=== PATIENT | female | born 1950 | race Caucasian/White ===

== ENCOUNTER 2017-04-20 15:21 | Observation (INO) | payer MEDICARE, OTHER ==
[2017-04-20] MEDS ORDERED: Sodium Chloride 0.9% 1000 ML 1,000 ML IV SCH (17:30)
[2017-04-20] MEDS: SUBLIMAZE 100 MCG/2 ML IV PRN (17:44)
[2017-04-20] MEDS ORDERED: Robitussin AC Syrup Unit Dose Cup PO PRN (17:51)
[2017-04-20 18:06] LABS: BASOPHIL % 0.3 % (0.0-0.4); Eosinophil % 1.2 % (0.00-5.0); Lymphocytes % 22.1 % (24.0-44.0); Mean Cell Volume 93.9 fl (78-100); Mean Corpuscular Hemoglobin 30.5 pg (26-32); Mean Platelet Volume 10.9 fl (6-9.5); Monocytes % 6.4 % (0.0-12.0); Platelet Count 180 K/mm3 (150-450); Red Blood Count 3.77 M/mm3 (4.1-5.4); Red Cell Distribution Width 12.9 % (11.5-14.0); White Blood Count 6.6 K/mm3 (4.0-10.5)
[2017-04-20 18:29] LABS: ALBUMIN 3.7 g/dL (3.4-5.0); ANION GAP 12.6 MEQ/L (5-15); BILIRUBIN,TOTAL 0.2 mg/dL (0.2-1.0); Carbon Dioxide 26.1 mEq/L (21-32); Potassium 3.4 mEq/L (3.5-5.1); Total Protein 7.1 gm/dL (6.4-8.2)
[2017-04-20] MEDS: ceLEXa 20 MG PO ONE ×2 (18:56→22:13)
[2017-04-20] MEDS: Lyrica 50MG PO ONE ×2 (18:59→22:13)
[2017-04-20] MEDS ORDERED: XARELTO 10 MG TABLET ONE (20:38)
[2017-04-20] MEDS ORDERED: ZOCOR 20MG PO SCH (22:00)
[2017-04-20] MEDS ORDERED: Pepcid 20 MG PO SCH (22:00)
[2017-04-20] MEDS: Naprosyn 500 MG PO SCH (22:11)
[2017-04-20] MEDS: Zanaflex 4 MG PO SCH (22:12)
[2017-04-21] MEDS: SUBLIMAZE 100 MCG/2 ML IV PRN (06:16)
[2017-04-21] MEDS ORDERED: Xopenex 1.25 MG/0.5 ML UD NEBULE IH SCH (07:00)
[2017-04-21] MEDS ORDERED: Sodium Chloride 3 ML UD NEBULES IH SCH (07:00)
[2017-04-21] MEDS ORDERED: PHENERGAN 25 MG PO PRN (07:29)
--- NOTE | 2017-04-21 09:05 | XRAY ---
Exam: Five-view lumbar spine series from 04/20/2017. Comparison: Sagittal images from a CT of the abdomen and pelvis without IV contrast from 02/23/2016 Indication: No known injury, low back pain and pain in coccyx area, history of fibromyalgia, no history of prior lumbar surgery. Findings: AP, lateral, both oblique images, and a coned-down lateral film of the lumbosacral junction were obtained. There are 5 [id number] lumbar-type vertebra. There is some straightening of the lumbar spine on the lateral radiograph. This is nonspecific. Consider spasm. I see no acute fracture, spondylolisthesis, or spondylolysis. Prominent anterior flowing osteophytes are seen within within the mid lumbar spine, most prominent at L2-L3 and L3-L4, although L4-L5 is involved as well to a lesser extent. I believe there is slight narrowing of the L5-S1 interspace. Moderate to marked facet joint arthropathy is seen at L4-L5 and L5-S1 bilaterally. No focal bone destruction is seen. There is a 3 mm calcification within the lower right pelvis which is shown to represent a phlebolith on axial image #[address] scan of 02/23/2016. The sacroiliac joints appear unremarkable. Impression: 1. I see no acute lumbar spine fracture, spondylolisthesis, or spondylolysis. 2. Nonspecific straightening of the lumbar spine on the lateral radiograph. Consider spasm. 3. Degenerative changes are seen within the lumbar spine, as discussed above.
--- NOTE | 2017-04-21 09:09 | XRAY ---
Exam: 3 view sacrum/coccyx films from 04/20/2017. Comparison: None. Indication: No known injury, low back pain with pain particularly in coccyx area, history of fibromyalgia, no history of prior surgery. Findings: AP, AP angled, and lateral radiographs of the sacrum and coccyx were obtained. I see no evidence of fracture or bone destruction within the sacrum or coccyx. The bones appear demineralized. Degenerative changes are again seen within the lower lumbar spine. No significant abnormality of the sacroiliac joints is seen. Impression: 1. No acute fracture or bone destruction is seen within the sacrum or coccyx.
[2017-04-21] MEDS ORDERED: Lyrica 50MG PO SCH (10:00)
[2017-04-21] MEDS ORDERED: XARELTO 10 MG TABLET PO SCH (10:00)
[2017-04-21] MEDS ORDERED: CALCIUM CARBONATE PO SCH (10:00)
[2017-04-21] MEDS ORDERED: VITAMIN D3 PO SCH (10:00)
[2017-04-21] MEDS ORDERED: ceLEXa 20 MG PO SCH (10:00)
[2017-04-21] MEDS ORDERED: MULTIVITAMINS THERAPEUTIC PO SCH (10:00)
[2017-04-21] MEDS ORDERED: [UNRECOGNIZED DRUG - OTHER] PO SCH (10:00)
[2017-04-21] MEDS ORDERED: Toprol-Xl 25MG Tablets PO SCH (10:00)
[2017-04-21] MEDS ORDERED: THERAGRAN MULTIVITAMIN PO SCH (10:00)
[2017-04-21] MEDS ORDERED: Calcium 500MG W/Vit D Tablet PO SCH (10:00)
[2017-04-21] MEDS: Naprosyn 500 MG PO SCH (10:28)
[2017-04-21] MEDS: Zanaflex 4 MG PO SCH (10:28)
[2017-04-21 11:21] VITALS: BP 146/66; PULSE 58; O2SAT 97
--- NOTE | 2017-04-21 13:05 | XRAY ---
Exam: CT of the lumbar spine without IV contrast from 04/21/2017. CTDI: 43.53 Comparison: Five-view lumbar spine series 04/20/2017. Indication: Acute back pain for 3 weeks, no prior surgical history within the lower lumbar spine, history of fibromyalgia. Technique: Non-IV contrast axial images were obtained through the lumbosacral spine. Reconstructed coronal and sagittal images were created and reviewed. In addition, thin section angled axial images were obtained parallel to the interspaces from T12-L1 through L5-S1. Findings: I again note straightening of the lumbar spine on the sagittal images. This is nonspecific, but paravertebral muscular spasm should be considered. Large anterior osteophytes are seen at L2-L3 and L3-L4 and a moderate size anterior osteophyte is seen at L4-L5. There is also small anterior vertebral endplate spurs at L5-S1. I see no acute lumbar spine fracture, spondylolisthesis, or spondylolysis. There is at least marked facet joint osteoarthritis at L4-L5 and L5-S1 bilaterally. 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 Minimal spurs are also seen at the lower anterior margin of each sacroiliac joint. No other sacroiliac joint abnormality is seen. The images of the sacrum and coccyx reveal no fracture or bone destructive process. At T12-L1, the disc and thecal sac appear unremarkable. No disc herniation or central canal stenosis is seen. The neural foramen are patent. There is mild degenerative changes of both facet joints. At L1-L2, there is slight diffuse annular bulging the disc without evidence of focal disc herniation or central canal stenosis. The ligamentum flavum appear unremarkable. The neural foramen are patent bilaterally. I note mild osteoarthritic changes of the facet joints. Small anterior vertebral endplate spurs are seen. At L2-L3, there is slight diffuse annular bulging of the disc without evidence of focal disc herniation or significant central canal stenosis. The AP dimension of the thecal sac measures about 11.2 mm on sagittal image #36 from series #201. The neural foramen are patent bilaterally. I again see mild facet joint arthropathy bilaterally. Prominent left anterior lateral vertebral endplate spurring is seen. At L3-L4, there is mild diffuse annular bulging of the disc which mildly effaces the anterior margin of the thecal sac, but again, no focal disc herniation is seen. The AP dimension of the thecal sac in the midline measures 9.1 mm on sagittal image #36 of series #201. This is slightly decreased. The width of the thecal sac appears unremarkable. The neural foramen are open. Moderate bilateral facet joint arthropathy is seen. Prominent anterior vertebral endplate spurring is seen. At L4-L5, I again note mild diffuse annular bulging of the disc. I believe there is a far lateral focal disc herniation on the left on axial images #70 through #73 of series #3. I believe this can also be seen on angled axial images #8 through #11. There is mild hypertrophy of ligamentum flavum and marked facet joint arthropathy bilaterally. The combination of these findings appears to be causing a mild to moderate circumferential central canal stenosis at L4-L5. AP dimension of the thecal sac in the midline measures about 9.8 mm. There is some narrowing of the neural foramen bilaterally at the disc level, left greater than right. The neural foramen above the disc level appear open. At L5-S1, there is mild diffuse annular bulging of the disc with mild lateral osteophyte formation on each side of midline. No focal disc herniation or significant central canal spinal stenosis is seen. AP dimension of the thecal sac measures 11.0 cm on sagittal image #36 of series #201. There is marked bilateral facet joint arthropathy. The S1 nerve roots appear unremarkable bilaterally. At the disc level, there is moderate compromise of the neural foramen bilaterally. Above the disc level, there is mild to moderate compromise of the neural foramen on the left and the upper right neural foramen remains open. Impression: 1. No acute lumbar spine fracture, spondylolisthesis, or spondylolysis is seen. There is some straightening of the lumbar spine on the sagittal images which may possibly be due to spasm. 2. Mild to moderate facet joint arthropathy is seen from T12-L1 through L2-L3 and marked facet joint arthropathy is seen from L3-L4 through L5-S1. 3. At L3-L4, there is mild diffuse annular bulging of the disc which effaces the anterior margin of the thecal sac resulting in a mildly decreased AP dimension of the thecal sac of 9.1 mm. However, significant circumferential central canal stenosis is not seen. The L3-L4 neural foramen appear open bilaterally. 4. At L4-L5, there appears to be mild to moderate central canal stenosis, best seen on axial image #10 of the thin section images taken taken at this interspace level. In addition, I believe there is a mild asymmetric far lateral disc L4-L5 disc herniation on the left. See above. There is narrowing of the L4-L5 neural foramen bilaterally at the disc level, left greater than right. However, the L4-L5 neural foramen above the disc appear open. 5. At L5-S1, I see no focal disc herniation or significant central canal stenosis. However, there is some neural foraminal narrowing bilaterally, as discussed above. 6. 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 For example, see axial image #96 of series #3. This is not well appreciated on the earlier plain films.
--- NOTE | 2017-04-21 13:18 | PCM.SSS ---
History of Present Illness - Chief Complaint Chief Complaint: acute lower back/leg pain for 3 weeks History of Present Illness: see history and physical. - Review of Systems Constitutional: No Fever, No Chills Eyes: No Symptoms Ears, Nose, & Throat: No Symptoms Respiratory: No Cough, No Short Of Breath Cardiac: No Chest Pain, No Edema, No Syncope Abdominal/Gastrointestinal: No Abdominal Pain, No Nausea, No Vomiting, No Diarrhea Genitourinary Symptoms: No Dysuria Musculoskeletal: Arthralgias, Back Pain, No Neck Pain, No Deformity Skin: No Rash Neurological: No Dizziness, No Focal Weakness, No Sensory Changes Psychological: No Symptoms Endocrine: No Symptoms Hematologic/Lymphatic: No Symptoms Immunological/Allergic: No Symptoms Medications & Allergies Home Medications: Home Medication List Citalopram Hydrobromide [Citalopram HBr] 20 mg PO DAILY 10/03/12 [History Confirmed 04/20/17] Fentanyl 25Mcg Patch [Duragesic 25MCG Patch] 25 mcg TOP Q3D 10/03/12 [ History Confirmed 04/20/17] Pravastatin Sodium [Pravachol] 40 mg PO HS 10/03/12 [History Confirmed 04/20/17] Pregabalin 50 mg [Lyrica 50MG] 50 mg PO BID 10/03/12 [History Confirmed ] Metoprolol Succinate 25 mg Xl* [Toprol-Xl 25MG Tablets] 25 mg PO BID #0 tab 10/04/12 [Rx Confirmed 04/20/17] Alendronate Sodium 70 mg [Fosamax 70 MG] 70 mg PO Q7D 10/23/13 [History Confirmed 04/20/17] Calcium Carbonate/Vitamin D3 [Calcium 600 + Vit D Softgel] 1 each PO DAILY 10/23 [History Confirmed 04/20/17] Cholecalciferol (Vitamin D3) [Vitamin D] 50,000 unit PO UD 10/23/13 [ History Confirmed 04/20/17] Famotidine/Ca Carb/Mag Hydrox [Pepcid Complete Tablet Chew] 1 each PO DAILY 09/06 [History Confirmed 04/20/17] Guaifenesin/Codeine Phosphate [Robitussin AC Syrup] 10 ml PO Q4H PRN #120 ml 09/06 [Rx Confirmed 04/20/17] Levalbuterol Tartrate [Xopenex Hfa] 1 puff IH BID 10/23/13 [History Confirmed ] Multivitamins,Therapeutic [Thera] 1 each PO DAILY 10/23/13 [History Confirmed ] Rivaroxaban 10 mg Tablet [Xarelto 10 mg Tablet] 10 mg PO DAILY 10/23/13 [ History Confirmed 04/20/17] Promethazine HCl 25 mg [Phenergan 25 mg] 25 mg PO Q8H PRN PRN #10 tablet 10/09/14 [Rx Confirmed 04/20/17] Allergies/Adverse Reactions: Allergies Allergy/AdvReac Type Severity Reaction Status Date / Time morphine Allergy Severe heart stops Verified 10/09/14 09:05 gemfibrozil [From Lopid] Allergy Unknown Verified 10/09/14 09:05 cortisone [Cortisone] AdvReac Intermediate bruising, Verified 10/09/14 09:05 "made me high" clarithromycin [From Biaxin] AdvReac Unknown Verified 10/09/14 09:05 - Past Medical History Past Medical History: Yes Neurological History: Peripheral Neuropathy, Stroke ENT History: No Pertinent History Cardiac History: High Cholesterol, Hypertension Respiratory History: Bronchitis, Pneumonia Endocrine Medical History: No Pertinent History Musculoskelatal History: Fibromyalgia GI Medical History: No Pertinent History History: Renal Disease Pyscho-Social History: Depression Reproductive Disorders: No Pertinent History Comment: Pt sees Dr. Patel to monitor kidney function, anemia, - Female History Are you now?: No - Past Surgical History Past Surgical History: Yes Neuro Surgical History: No Pertinent History Cardiac History: No Pertinent History Respiratory Surgery: No Pertinent History GI Surgical History: Appendectomy Genitourinary Surgical Hx: No Pertinent History Musculskeletal Surgical Hx: No Pertinent History Female Surgical History: Tubal Ligation Other Surgical History: overy removed - Social History Smoking Status: Never smoker Exposure to second hand smoke: Yes Alcohol: None Drug Use: none - Physical Exam Vital Signs: Vital Signs - 24 hr Temp Pulse Resp BP Pulse Ox 04/21/17 11:20 97.6 F 58 L 16 146/66 97 04/21/17 07:37 97.9 F 61 16 102/53 94 L 04/21/17 04:00 97.8 F 67 16 100/53 96 04/21/17 00:00 97.8 F 65 16 110/55 96 04/20/17 20:00 98.3 F 66 17 136/60 90 L 04/20/17 18:00 97.8 F 73 16 168/75 98 04/20/17 16:01 97.8 F 73 16 168/75 98 04/20/17 15:55 97.8 F 73 168/75 04/20/17 15:34 97.8 F 73 16 168/75 98 General Appearance: no apparent distress, alert Neurologic Exam: alert, oriented x 3, cooperative, normal mood/affect, nml cerebellar function, nml station & gait, sensation nml, No motor deficits Eye Exam: PERRL/EOMI, eyes nml inspection Ears, Nose, Throat Exam: normal ENT inspection, TMs normal, pharynx normal, moist mucous membranes Neck Exam: normal inspection, non-tender, supple, full range of motion Respiratory Exam: normal breath sounds, lungs clear, No respiratory distress Cardiovascular Exam: regular rate/rhythm, normal heart sounds, normal peripheral pulses Gastrointestinal/Abdomen Exam: soft, normal bowel sounds, No tenderness, No mass Back Exam: normal inspection, normal range of motion, No CVA tenderness, No vertebral tenderness Extremity Exam: normal inspection, normal range of motion, pelvis stable Skin Exam: normal color, warm, dry, No rash Lymphatic Exam: No adenopathy Results - Labs Lab/Micro Results: Lab Results-Last 24 Hours 04/20/17 04/20/17 Range/Units 17:45 17:50 WBC 6.6 (4.0-10.5) K/mm3 RBC 3.77 L (4.1-5.4) M/mm3 Hgb 11.5 L (12.0-16.0) gm/dl Hct 35.4 (35-47) % MCV 93.9 (78-100) fl MCH 30.5 (26-32) pg MCHC 32.5 (32-36) g/dl RDW 12.9 (11.5-14.0) % Plt Count 180 (150-450) K/mm3 MPV 10.9 H (6-9.5) fl Gran % 70.0 H (36.0-66.0) % Lymphocytes % 22.1 L (24.0-44.0) % Monocytes % 6.4 (0.0-12.0) % Eosinophils % 1.2 (0.00-5.0) % Basophils % 0.3 (0.0-0.4) % Basophils # 0.02 (0-0.4) Sodium 142 (136-145) mEq/L Potassium 3.4 L (3.5-5.1) mEq/L Chloride 107 (98-107) mEq/L Carbon Dioxide 26.1 (21-32) mEq/L Anion Gap 12.6 (5-15) MEQ/L BUN 13 (9-20) mg/dL Creatinine 0.99 (0.55-1.30) mg/dl Estimated GFR 59 ML/MIN Glucose 123 H (70-110) MG/DL Calcium 9.0 (8.5-10.1) mg/dL Total Bilirubin 0.20 (0.2-1.0) mg/dL AST 23 (15-37) U/L ALT 22 (12-78) U/L Alkaline Phosphatase 57 (46-116) U/L Serum Total Protein 7.1 (6.4-8.2) gm/dL Albumin 3.7 (3.4-5.0) g/dL - Radiology Impressions Radiology Exams & Impressions: Radiology Procedures Category Date Time Status LUMBAR COMPLETE (MIN 4 VIEWS) Routine Exams 04/20/17 17:45 Completed LUMBAR SPINE W/O [CT] Urgent Exams 04/21/17 09:29 Completed SACRUM AND COCCYX Routine Exams 04/20/17 17:45 Completed 1. No acute lumbar spine fracture, spondylolisthesis, or spondylolysis is seen. There is some straightening of the lumbar spine on the sagittal images which may possibly be due to spasm. 2. Mild to moderate facet joint arthropathy is seen from T12-L1 through L2-L3 and marked facet joint arthropathy is seen from L3-L4 through L5-S1. 3. At L3-L4, there is mild diffuse annular bulging of the disc which effaces the anterior margin of the thecal sac resulting in a mildly decreased AP dimension of the thecal sac of 9.1 mm. However, significant circumferential central canal stenosis is not seen. The L3-L4 neural foramen appear open bilaterally. 4. At L4-L5, there appears to be mild to moderate central canal stenosis, best seen on axial image #10 of the thin section images taken taken at this interspace level. In addition, I believe there is a mild asymmetric far lateral disc L4-L5 disc herniation on the left. See above. There is narrowing of the L4-L5 neural foramen bilaterally at the disc level, left greater than right. However, the L4-L5 neural foramen above the disc appear open. 5. At L5-S1, I see no focal disc herniation or significant central canal stenosis. However, there is some neural foraminal narrowing bilaterally, as discussed above. 6. 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 For example, see axial image #96 of series #3. This is not well appreciated on the earlier plain films Assessment/Plan (1) Sciatic neuralgia Current Visit: Yes Status: Acute Qualifiers: Laterality: right Qualified Code(s): M54.31 - Sciatica, right side Assessment & Plan: Chief Complaint Diagnosis acute lower back/leg pain for 3 weeks Allergies Allergy/AdvReac Type Severity Reaction Status Date / Time morphine Allergy Severe heart stops Verified 10/09/14 09:05 gemfibrozil [From Lopid] Allergy Unknown Verified 10/09/14 09:05 cortisone [Cortisone] AdvReac Intermediate bruising, Verified 10/09/14 09:05 "made me high" clarithromycin [From Biaxin] AdvReac Unknown Verified 10/09/14 09:05 Vital Signs (Last 24 hours) Temp Pulse Resp BP Pulse Ox 04/21/17 11:20 97.6 F 58 L 16 146/66 97 04/21/17 07:37 97.9 F 61 16 102/53 94 L 04/21/17 04:00 97.8 F 67 16 100/53 96 04/21/17 00:00 97.8 F 65 16 110/55 96 04/20/17 20:00 98.3 F 66 17 136/60 90 L 04/20/17 18:00 97.8 F 73 16 168/75 98 04/20/17 16:01 97.8 F 73 16 168/75 98 04/20/17 15:55 97.8 F 73 168/75 04/20/17 15:34 97.8 F 73 16 168/75 98 Current Medications Generic Name Dose Route Start Last Admin Trade Name Freq PRN Reason Stop Dose Admin Alendronate Sodium 70 mg 04/26/17 06:00 Fosamax 70 Mg PO 05/26/17 05:59 Q7D JOSSY Calcium Carbonate 1 tab 04/21/17 10:00 04/21/17 10:27 Calcium 500mg W/Vit D Tablet PO 05/21/17 09:59 1 tab DAILY JOSSY Administration Citalopram Hydrobromide 20 mg 04/21/17 10:00 04/21/17 10:27 Celexa 20 Mg PO 05/21/17 09:59 20 mg DAILY JOSSY Administration Ergocalciferol 50,000 unit 04/26/17 10:00 Vitamin D2 PO 05/26/17 09:59 Q7D JOSSY Famotidine 20 mg 04/20/17 22:00 04/20/17 22:11 Pepcid 20 Mg PO 05/20/17 21:59 20 mg HS JOSSY Administration Fentanyl 25 mcg 04/22/17 22:00 Duragesic 25mcg Patch TOP 04/27/17 21:59 Q3D JOSSY Fentanyl Citrate 50 mcg 04/20/17 17:27 04/21/17 06:16 Sublimaze 100 Mcg/2 Ml IV 04/25/17 17:26 50 mcg Q6H PRN PRN Administration PAIN Guaifenesin/Codeine Phosphate 10 ml 04/20/17 17:51 Robitussin Ac Syrup Unit Dose Cup PO 05/20/17 17:50 Q4H PRN PRN COUGH Sodium Chloride 1,000 mls @ 50 mls/hr 04/20/17 17:30 04/20/17 17:45 Sodium Chloride 0.9% 1000 Ml IV 05/20/17 17:29 50 mls/hr .Q20H JOSSY Administration Levalbuterol HCl 1.25 mg 04/21/17 07:00 Xopenex 1.25 Mg/0.5 Ml Ud Nebule IH 05/21/17 06:59 BIDRT JOSSY Metoprolol Succinate 25 mg 04/21/17 10:00 04/21/17 10:27 Toprol-Xl 25mg Tablets PO 05/21/17 09:59 25 mg BID JOSSY Administration Multivitamins 1 tab 04/21/17 10:00 04/21/17 10:28 Theragran Multivitamin PO 05/21/17 09:59 1 tab DAILY JOSSY Administration Naproxen 500 mg 04/20/17 22:00 04/21/17 10:28 Naprosyn 500 Mg PO 05/20/17 21:59 500 mg TID JOSSY Administration Pregabalin 50 mg 04/21/17 10:00 04/21/17 10:27 Lyrica 50mg PO 05/21/17 09:59 50 mg BID JOSSY Administration Promethazine HCl 25 mg 04/21/17 07:29 Phenergan 25 Mg PO 05/21/17 07:28 Q8H PRN PRN NAUSEA Simvastatin 40 mg 04/20/17 22:00 04/20/17 22:12 Zocor 20mg PO 05/20/17 21:59 40 mg HS JOSSY Administration Sodium Chloride 3 ml 04/21/17 07:00 Sodium Chloride 3 Ml Ud Nebules IH 05/21/17 06:59 BIDRT JOSSY Tizanidine HCl 4 mg 04/20/17 22:00 04/21/17 10:28 Zanaflex 4 Mg PO 05/20/17 21:59 4 mg TID JOSSY Administration Discontinued Medications Generic Name Dose Route Start Last Admin Trade Name Freq PRN Reason Stop Dose Admin Citalopram Hydrobromide 20 mg 04/20/17 17:55 04/20/17 22:13 Celexa 20 Mg PO 04/20/17 17:56 20 mg DAILY ONE Administration Pregabalin 50 mg 04/20/17 18:06 04/20/17 22:13 Lyrica 50mg PO 04/20/17 18:07 50 mg BID ONE Administration Intake & Output (Last 24 hours) 04/19/17 04/20/17 04/21/17 04/22/17 11:59 11:59 11:59 11:59 Intake Total 1626 480 Output Total 2 Balance 1626 478 Weight 67.404 kg Laboratory Results (Last 24 hours) 04/20/17 04/20/17 17:50 17:45 WBC 6.6 RBC 3.77 L Hgb 11.5 L Hct 35.4 MCV 93.9 MCH 30.5 MCHC 32.5 RDW 12.9 Plt Count 180 MPV 10.9 H Gran % 70.0 H Lymphocytes % 22.1 L Monocytes % 6.4 Eosinophils % 1.2 Basophils % 0.3 Basophils # 0.02 Sodium 142 Potassium 3.4 L Chloride 107 Carbon Dioxide 26.1 Anion Gap 12.6 BUN 13 Creatinine 0.99 Estimated GFR 59 Glucose 123 H Calcium 9.0 Total Bilirubin 0.20 AST 23 ALT 22 Alkaline Phosphatase 57 Serum Total Protein 7.1 Albumin 3.7 Orders (Last 24 hours) Category Date Time Status Admission/Status Order ROUTINE Care 04/20/17 15:25 Active Miscellaneous Nursing Order ROUTINE Care 04/20/17 17:33 Active Regular Diet Diet 04/20/17 Dinner Active LUMBAR COMPLETE (MIN 4 VIEWS) Routine Exams 04/20/17 17:45 Completed LUMBAR SPINE W/O [CT] Urgent Exams 04/21/17 09:29 Completed SACRUM AND COCCYX Routine Exams 04/20/17 17:45 Completed CBC W DIFF Routine Lab 04/20/17 17:45 Completed CMP Routine Lab 04/20/17 17:50 Completed Alendronate Sodium 70 mg [Fosamax 70 MG] Med 04/26/17 06:00 Active 70 mg PO Q7D Calcium Carb/Vitamin D 500 mg* [Calcium 500MG W/Vit D Med 04/21/17 10:00 Active Tablet] 1 tab PO DAILY Citalopram Hydrobromide 20 mg* [ceLEXa 20 MG] Med 04/21/17 10:00 Active 20 mg PO DAILY Citalopram Hydrobromide 20 mg* [ceLEXa 20 MG] Med 04/20/17 17:55 Discontinued 20 mg PO DAILY ONE Ergocalciferol (Vitamin D2) [Vitamin D2] Med 04/26/17 10:00 Active 50,000 unit PO Q7D Famotidine 20 mg [Pepcid 20 MG] Med 04/20/17 22:00 Active 20 mg PO HS Fentanyl 25Mcg Patch [Duragesic 25MCG Patch] Med 04/22/17 22:00 Active 25 mcg TOP Q3D Fentanyl Citrate 100 Mcg/2 ml* [Sublimaze 100 Mcg/2 ml* Med 04/20/17 17:27 Active ] 50 mcg IV Q6H PRN PRN Guaifenesin/Codeine 5 ml [Robitussin AC Syrup Unit Med 04/20/17 17:51 Active Dose Cup] 10 ml PO Q4H PRN PRN Levalbuterol HCl 1.25 MG/0.5M* [Xopenex 1.25 MG/0.5 ML Med 04/21/17 07:00 Active UD NEBULE] 1.25 mg IH BIDRT Metoprolol Succinate 25 mg Xl* [Toprol-Xl 25MG Tablets* Med 04/21/17 10:00 Active ] 25 mg PO BID Multivitamins,Therapeutic Tab* [Theragran Multivitamin* Med 04/21/17 10:00 Active ] 1 tab PO DAILY NaCl 0.9% 1000 ml [Sodium Chloride 0.9% 1000 ML] 1,000 Med 04/20/17 17:30 Active ml IV 50 mls/hr NaCl 3Ml For Inhalation [Sodium Chloride 3 ML UD Med 04/21/17 07:00 Active NEBULES] 3 ml IH BIDRT Naproxen 500 mg [Naprosyn 500 MG] Med 04/20/17 22:00 Active 500 mg PO TID Pregabalin 50 mg [Lyrica 50MG] Med 04/21/17 10:00 Active 50 mg PO BID Pregabalin 50 mg [Lyrica 50MG] Med 04/20/17 18:06 Discontinued 50 mg PO BID ONE Promethazine HCl 25 mg [Phenergan 25 mg] Med 04/21/17 07:29 Active 25 mg PO Q8H PRN PRN Rivaroxaban 10 mg Tablet [Xarelto 10 mg Tablet] Med 04/20/17 20:38 Discontinued 10 mg .ROUTE .STK-MED ONE Rivaroxaban 10 mg Tablet [Xarelto 10 mg Tablet] Med 04/21/17 10:00 Active 10 mg PO DAILY Rivaroxaban 10 mg Tablet [Xarelto 10 mg Tablet] Med 04/21/17 18:00 Discontinued 10 mg PO DAILY ONE Simvastatin 20Mg [Zocor 20Mg] Med 04/20/17 22:00 Active 40 mg PO HS Tizanidine HCl 4 mg [Zanaflex 4 MG] Med 04/20/17 22:00 Active 4 mg PO TID PT Eval & Treat (MD Order) ROUTINE PT 04/20/17 17:35 Active Code(s): M54.30 - SCIATICA, UNSPECIFIED SIDE Hospital Summary - Hospital Course Hospital Course: Last Vital Signs Temp 97.6 F 04/21/17 11:20 Pulse 58 L 04/21/17 11:20 Resp 16 04/21/17 11:20 BP 146/66 04/21/17 11:20 Pulse Ox 97 04/21/17 11:20 Allergies morphine Allergy (Severe, Verified 10/09/14 09:05) heart stops gemfibrozil [From Lopid] Allergy (Unknown, Verified 10/09/14 09:05) cortisone [Cortisone] Adverse Reaction (Intermediate, Verified 10/09/14 09:05) bruising, "made me high" clarithromycin [From Biaxin] Adverse Reaction (Unknown, Verified 10/09/14 09:05) Active Medications Alendronate Sodium (Fosamax 70 Mg) 70 mg PO Q7D [facility] Stop: 05/26/17 05:59 Calcium Carbonate (Calcium 500mg W/Vit D Tablet) 1 tab PO DAILY [facility] Stop: 05/21/17 09:59 Last Admin: 04/21/17 10:27 Dose: 1 tab Citalopram Hydrobromide (Celexa 20 Mg) 20 mg PO DAILY [facility] Stop: 05/21/17 09:59 Last Admin: 04/21/17 10:27 Dose: 20 mg Ergocalciferol (Vitamin D2) 50,000 unit PO Q7D [facility] Stop: 05/26/17 09:59 Famotidine (Pepcid 20 Mg) 20 mg PO HS [facility] Stop: 05/20/17 21:59 Last Admin: 04/20/17 22:11 Dose: 20 mg Fentanyl (Duragesic 25mcg Patch) 25 mcg TOP Q3D [facility] Stop: 04/27/17 21:59 Fentanyl Citrate (Sublimaze 100 Mcg/2 Ml) 50 mcg IV Q6H PRN PRN PRN Reason: PAIN Stop: 04/25/17 17:26 Last Admin: 04/21/17 06:16 Dose: 50 mcg Guaifenesin/Codeine Phosphate (Robitussin Ac Syrup Unit Dose Cup) 10 ml PO Q4H PRN PRN PRN Reason: COUGH Stop: 05/20/17 17:50 Sodium Chloride (Sodium Chloride 0.9% 1000 Ml) 1,000 mls @ 50 mls/hr IV .Q20H [facility] Stop: 05/20/17 17:29 Last Admin: 04/20/17 17:45 Dose: 50 mls/hr Levalbuterol HCl (Xopenex 1.25 Mg/0.5 Ml Ud Nebule) 1.25 mg IH BIDRT [facility] Stop: 05/21/17 06:59 Metoprolol Succinate (Toprol-Xl 25mg Tablets) 25 mg PO BID [facility] Stop: 05/21/17 09:59 Last Admin: 04/21/17 10:27 Dose: 25 mg Multivitamins (Theragran Multivitamin) 1 tab PO DAILY [facility] Stop: 05/21/17 09:59 Last Admin: 04/21/17 10:28 Dose: 1 tab Naproxen (Naprosyn 500 Mg) 500 mg PO TID [facility] Stop: 05/20/17 21:59 Last Admin: 04/21/17 10:28 Dose: 500 mg Pregabalin (Lyrica 50mg) 50 mg PO BID [facility] Stop: 05/21/17 09:59 Last Admin: 04/21/17 10:27 Dose: 50 mg Promethazine HCl (Phenergan 25 Mg) 25 mg PO Q8H PRN PRN PRN Reason: NAUSEA Stop: 05/21/17 07:28 Simvastatin (Zocor 20mg) 40 mg PO HS [facility] Stop: 05/20/17 21:59 Last Admin: 04/20/17 22:12 Dose: 40 mg Sodium Chloride (Sodium Chloride 3 Ml Ud Nebules) 3 ml IH BIDRT [facility] Stop: 05/21/17 06:59 Tizanidine HCl (Zanaflex 4 Mg) 4 mg PO TID JOSSY Stop: 05/20/17 21:59 Last Admin: 04/21/17 10:28 Dose: 4 mg Intake & Output 04/21/17 04/22/17 11:59 11:59 Intake Total 1626 480 Output Total 2 Balance 1626 478 Weight 67.404 kg Orders 04/20/17 15:25 Admission/Status Order ROUTINE 04/20/17 17:27 Fentanyl Citrate 100 Mcg/2 ml* [Sublimaze 100 Mcg/2 ml] 50 mcg IV Q6H PRN PRN 04/20/17 17:30 NaCl 0.9% 1000 ml [Sodium Chloride 0.9% 1000 ML] 1,000 ml IV 50 mls/hr 04/20/17 17:33 Miscellaneous Nursing Order ROUTINE 04/20/17 17:35 PT Eval & Treat (MD Order) ROUTINE 04/20/17 17:51 Guaifenesin/Codeine 5 ml [Robitussin AC Syrup Unit Dose Cup] 10 ml PO Q4H PRN PRN 04/20/17 22:00 Famotidine 20 mg [Pepcid 20 MG] 20 mg PO HS Naproxen 500 mg [Naprosyn 500 MG] 500 mg PO TID Simvastatin 20Mg [Zocor 20Mg] 40 mg PO HS Tizanidine HCl 4 mg [Zanaflex 4 MG] 4 mg PO TID 04/20/17 Dinner Regular Diet 04/21/17 07:00 Levalbuterol HCl 1.25 MG/0.5M* [Xopenex 1.25 MG/0.5 ML UD NEBULE] 1.25 mg IH BIDRT NaCl 3Ml For Inhalation [Sodium Chloride 3 ML UD NEBULES] 3 ml IH BIDRT 04/21/17 07:29 Promethazine HCl 25 mg [Phenergan 25 mg] 25 mg PO Q8H PRN PRN 04/21/17 10:00 Calcium Carb/Vitamin D 500 mg* [Calcium 500MG W/Vit D Tablet] 1 tab PO DAILY Citalopram Hydrobromide 20 mg* [ceLEXa 20 MG] 20 mg PO DAILY Metoprolol Succinate 25 mg Xl* [Toprol-Xl 25MG Tablets] 25 mg PO BID Multivitamins,Therapeutic Tab* [Theragran Multivitamin] 1 tab PO DAILY Pregabalin 50 mg [Lyrica 50MG] 50 mg PO BID Rivaroxaban 10 mg Tablet [Xarelto 10 mg Tablet] 10 mg PO DAILY 04/22/17 22:00 Fentanyl 25Mcg Patch [Duragesic 25MCG Patch] 25 mcg TOP Q3D 04/26/17 06:00 Alendronate Sodium 70 mg [Fosamax 70 MG] 70 mg PO Q7D 04/26/17 10:00 Ergocalciferol (Vitamin D2) [Vitamin D2] 50,000 unit PO Q7D Lab Tests 04/20/17 04/20/17 17:45 17:50 WBC 6.6 RBC 3.77 L Hgb 11.5 L Hct 35.4 MCV 93.9 MCH 30.5 MCHC 32.5 RDW 12.9 Plt Count 180 MPV 10.9 H Gran % 70.0 H Lymphocytes % 22.1 L Monocytes % 6.4 Eosinophils % 1.2 Basophils % 0.3 Basophils # 0.02 Sodium 142 Potassium 3.4 L Chloride 107 Carbon Dioxide 26.1 Anion Gap 12.6 BUN 13 Creatinine 0.99 Estimated GFR 59 Glucose 123 H Calcium 9.0 Total Bilirubin 0.20 AST 23 ALT 22 Alkaline Phosphatase 57 Serum Total Protein 7.1 Albumin 3.7 - Vitals & Intake/Output Vital Signs: Vital Signs Temperature 97.6 F 04/21/17 11:20 Pulse Rate 58 L 04/21/17 11:20 Respiratory Rate 16 04/21/17 11:20 Blood Pressure 146/66 04/21/17 11:20 O2 Sat by Pulse Oximetry 97 04/21/17 11:20 Intake & Output: Intake & Output 04/19/17 04/20/17 04/21/17 04/22/17 11:59 11:59 11:59 11:59 Intake Total 1626 480 Output Total 2 Balance 1626 478 Weight 67.404 kg - Lab Result Diagrams: 04/20/17 17:45 04/20/17 17:50 Lab Results-Last 24 Hrs: Lab Results-Last 24 Hours 04/20/17 04/20/17 Range/Units 17:45 17:50 WBC 6.6 (4.0-10.5) K/mm3 RBC 3.77 L (4.1-5.4) M/mm3 Hgb 11.5 L (12.0-16.0) gm/dl Hct 35.4 (35-47) % MCV 93.9 (78-100) fl MCH 30.5 (26-32) pg MCHC 32.5 (32-36) g/dl RDW 12.9 (11.5-14.0) % Plt Count 180 (150-450) K/mm3 MPV 10.9 H (6-9.5) fl Gran % 70.0 H (36.0-66.0) % Lymphocytes % 22.1 L (24.0-44.0) % Monocytes % 6.4 (0.0-12.0) % Eosinophils % 1.2 (0.00-5.0) % Basophils % 0.3 (0.0-0.4) % Basophils # 0.02 (0-0.4) Sodium 142 (136-145) mEq/L Potassium 3.4 L (3.5-5.1) mEq/L Chloride 107 (98-107) mEq/L Carbon Dioxide 26.1 (21-32) mEq/L Anion Gap 12.6 (5-15) MEQ/L BUN 13 (9-20) mg/dL Creatinine 0.99 (0.55-1.30) mg/dl Estimated GFR 59 ML/MIN Glucose 123 H (70-110) MG/DL Calcium 9.0 (8.5-10.1) mg/dL Total Bilirubin 0.20 (0.2-1.0) mg/dL AST 23 (15-37) U/L ALT 22 (12-78) U/L Alkaline Phosphatase 57 (46-116) U/L Serum Total Protein 7.1 (6.4-8.2) gm/dL Albumin 3.7 (3.4-5.0) g/dL - Radiology Exams Ordered Rad Exams-Entire Visit: Radiology Procedures Category Date Time Status LUMBAR COMPLETE (MIN 4 VIEWS) Routine Exams 04/20/17 17:45 Completed LUMBAR SPINE W/O [CT] Urgent Exams 04/21/17 09:29 Completed SACRUM AND COCCYX Routine Exams 04/20/17 17:45 Completed - Procedures and Test Procedures and Tests throughout Hospitalization: Therapy Orders & Screens 04/20/17 17:35 PT Eval & Treat ( Order) ROUTINE Evaluate: Yes Treat: Yes Reason for Eval:: ACUTE BACK/LEG PAIN X 3 WEEKS WITH NO RELIEF, DIRECT ADMIT FROM DR. TOSCANO OFFICE Diagnosis: acute pain - Discharge Discharge Date: 04/21/17 Disposition: Home, Self-Care Condition: Stable Prescriptions: No Action Fentanyl 25Mcg Patch [Duragesic 25MCG Patch] 25 mcg TOP Q3D Pravastatin Sodium [Pravachol] 40 mg PO HS Citalopram Hydrobromide [Citalopram HBr] 20 mg PO DAILY Pregabalin 50 mg [Lyrica 50MG] 50 mg PO BID Metoprolol Succinate 25 mg Xl* [Toprol-Xl 25MG Tablets] 25 mg PO BID #0 tab Rivaroxaban 10 mg Tablet [Xarelto 10 mg Tablet] 10 mg PO DAILY Multivitamins,Therapeutic [Thera] 1 each PO DAILY Famotidine/Ca Carb/Mag Hydrox [Pepcid Complete Tablet Chew] 1 each PO DAILY Alendronate Sodium 70 mg [Fosamax 70 MG] 70 mg PO Q7D Cholecalciferol (Vitamin D3) [Vitamin D] 50,000 unit PO UD Calcium Carbonate/Vitamin D3 [Calcium 600 + Vit D Softgel] 1 each PO DAILY Levalbuterol Tartrate [Xopenex Hfa] 1 puff IH BID Guaifenesin/Codeine Phosphate [Robitussin AC Syrup] 10 ml PO Q4H PRN #120 ml Promethazine HCl 25 mg [Phenergan 25 mg] 25 mg PO Q8H PRN PRN #10 tablet PRN Reason: Nausea Follow up with: GORGE TOSCANO MD [Primary Care Provider] - 1 Week
[2017-04-21] MEDS ORDERED: XARELTO 10 MG TABLET PO ONE (18:00)
[2017-04-21] MEDS ORDERED: ZOCOR 20MG PO SCH (22:00)
[2017-04-21] MEDS ORDERED: NON-FORMULARY ITEM (Pravastatin Sodium [Pravachol] 40 MG) PO SCH (22:00)
[2017-04-22] MEDS ORDERED: Duragesic 25MCG Patch TOP SCH (22:00)
[2017-04-26] MEDS ORDERED: Fosamax 70 MG PO SCH (06:00)
[2017-04-26] MEDS ORDERED: VITAMIN D2 PO SCH (10:00)
== END 2017-04-21 14:50 | disposition home or self-care (01) ==
LOC: MED SURG 15:25
PROVIDERS: ADMIT General Practice; ATTEND General Practice
DX: M54.31 Sciatica, right side (principal); G62.9 Polyneuropathy, unspecified; Z86.73 Personal history of transient ischemic attack (TIA), and cerebral infarction without residual deficits; I11.9 Hypertensive heart disease without heart failure; M79.7 Fibromyalgia; N28.9 Disorder of kidney and ureter, unspecified; F32.9 Major depressive disorder, single episode, unspecified; I48.2 Chronic atrial fibrillation; D64.9 Anemia, unspecified; M81.0 Age-related osteoporosis without current pathological fracture; M53.85 Other specified dorsopathies, thoracolumbar region; M54.5 Low back pain; Z79.01 Long term (current) use of anticoagulants; Z79.899 Other long term (current) drug therapy
CPT/HCPCS: 36415; 72110; 72131; 72220; 80053; 85025; G0378; J3010; A9270-GY

== ENCOUNTER 2017-04-25 08:36 | Emergency (ER) | payer MEDICARE, OTHER ==
--- NOTE | 2017-04-25 08:58 | ERPHSYRPT ---
- History of Present Illness Time Seen by Provider: 04/25/17 08:56 Source: patient Exam Limitations: no limitations Patient Subjective Stated Complaint: pt states she was admitted in hospital last week for pain control for her back. pt states she became concerned this morning due to her blood pressure being low on her home monitor. pt states she has been taking pain medication and has a fentanyl patch. Triage Nursing Assessment: pt pale, warm, dry. pt ambulated into Er without difficulty. pt alert and oriented x3. Physician History: The patient is a 67-year-old female with her complaining of obtaining a low reading on her home blood pressure cuff this morning. She was hospitalized on Monday for overnight observation for pain control. She was discharged with prescription for tizanidine for back muscle spasms. Since taking that time tizanidine she has been lightheaded. This morning her blood pressure was routinely 91/54 and another time 88/45 and finally it was low 80s over 37. She denies being lightheaded at this time because she was sitting down. Her blood pressure usually runs in the 130s over mid 50s. Her past medical history is significant for fibromyalgia, hypertension, high cholesterol, and depression. She has been using a fentanyl patch to control her pain for several years. Timing/Duration: today Severity: mild Modifying Factors: Improves With: nothing Associated Symptoms: other (light headed) Allergies/Adverse Reactions: morphine Allergy (Severe, Verified 04/25/17 08:48) heart stops gemfibrozil [From Lopid] Allergy (Unknown, Verified 04/25/17 08:48) cortisone [Cortisone] Adverse Reaction (Intermediate, Verified 04/25/17 08:48) bruising, "made me high" clarithromycin [From Biaxin] Adverse Reaction (Unknown, Verified 04/25/17 08:48) Home Medications: Citalopram Hydrobromide [Citalopram HBr] 20 mg PO DAILY 10/03/12 [History] Fentanyl 25Mcg Patch [Duragesic 25MCG Patch] 25 mcg TOP Q3D 10/03/12 [ History] Pravastatin Sodium [Pravachol] 40 mg PO HS 10/03/12 [History] Pregabalin 50 mg [Lyrica 50MG] 50 mg PO BID 10/03/12 [History] Calcium Carbonate/Vitamin D3 [Calcium 600-Vit D3 500 Softgel] 1 each PO DAILY [History] Cholecalciferol (Vitamin D3) [Vitamin D] 50,000 unit PO UD 10/23/13 [ History] Multivitamins,Therapeutic [Thera] 1 each PO DAILY 10/23/13 [History] Rivaroxaban 10 mg Tablet [Xarelto 10 mg Tablet] 10 mg PO DAILY 10/23/13 [ History] Hx Tetanus, Diphtheria Vaccination/Date Given: Yes (unknown) Hx Influenza Vaccination/Date Given: No Hx Pneumococcal Vaccination/Date Given: No Immunizations Up to Date: Yes - Review of Systems Constitutional: No Fever, No Chills Eyes: No Symptoms Ears, Nose, & Throat: No Symptoms Respiratory: No Cough, No Dyspnea Cardiac: No Chest Pain, No Edema, No Syncope Abdominal/Gastrointestinal: No Abdominal Pain, No Nausea, No Vomiting, No Diarrhea Genitourinary Symptoms: No Dysuria Musculoskeletal: Back Pain Skin: No Rash Neurological: Other (light headed) Psychological: No Symptoms Endocrine: No Symptoms Hematologic/Lymphatic: No Symptoms Immunological/Allergic: No Symptoms All Other Systems: Reviewed and Negative - Past Medical History Pertinent Past Medical History: Yes Neurological History: Peripheral Neuropathy, Stroke ENT History: No Pertinent History Cardiac History: High Cholesterol, Hypertension Respiratory History: Bronchitis, Pneumonia Endocrine Medical History: No Pertinent History Musculoskeletal History: Fibromyalgia GI Medical History: No Pertinent History History: Renal Disease Psycho-Social History: Depression Female Reproductive Disorders: No Pertinent History Other Medical History: Pt sees Dr. Patel to monitor kidney function, anemia, - Past Surgical History Past Surgical History: Yes Neuro Surgical History: No Pertinent History Cardiac: No Pertinent History Respiratory: No Pertinent History Gastrointestinal: Appendectomy Genitourinary: No Pertinent History Musculoskeletal: No Pertinent History Female Surgical History: Tubal Ligation Other Surgical History: overy removed - Social History Smoking Status: Never smoker Exposure to second hand smoke: Yes Drug Use: none Patient Lives Alone: No - Female History Hx Now: No - Nursing Vital Signs Nursing Vital Signs: Initial Vital Signs Temperature 98.8 F 04/25/17 08:42 Pulse Rate 68 04/25/17 08:42 Respiratory Rate 20 04/25/17 08:42 Blood Pressure 104/47 04/25/17 08:42 O2 Sat by Pulse Oximetry 99 04/25/17 08:42 Pain Scale Pain Intensity 2 - Physical Exam General Appearance: no apparent distress, alert Eye Exam: PERRL/EOMI, eyes nml inspection Ears, Nose, Throat Exam: normal ENT inspection, TMs normal, pharynx normal, moist mucous membranes Neck Exam: normal inspection, non-tender, supple, full range of motion Respiratory Exam: normal breath sounds, lungs clear, No respiratory distress Cardiovascular Exam: regular rate/rhythm, normal heart sounds, normal peripheral pulses Gastrointestinal/Abdomen Exam: soft, normal bowel sounds, No tenderness, No mass Pelvic Exam: not done Rectal Exam: not done Back Exam: normal inspection, normal range of motion, No CVA tenderness, No vertebral tenderness Extremity Exam: normal inspection, normal range of motion, pelvis stable Neurologic Exam: alert, oriented x 3, cooperative, normal mood/affect, nml cerebellar function, nml station & gait, sensation nml, No motor deficits Skin Exam: pale Lymphatic Exam: No adenopathy SpO2 Interpretation: normal SpO2: 99 Oxygen Delivery: Room Air Ordered Tests: Active Orders 24 hr Category Date Time Status IV Insertion STAT Care 04/25/17 09:23 Active Orthostatic Vital Signs STAT Care 04/25/17 09:23 Active BMP Stat Lab 04/25/17 09:20 Completed CBC W DIFF Stat Lab 04/25/17 09:20 Completed UA W/RFX UR CULTURE Stat Lab 04/25/17 09:22 Ordered Medication Summary Discontinued Medications Generic Name Dose Route Start Last Admin Trade Name Breana PRN Reason Stop Dose Admin Sodium Chloride 500 mls @ 999 mls/hr 04/25/17 09:23 04/25/17 09:33 Sodium Chloride 0.9% 1000 Ml IV 04/25/17 09:53 999 mls/hr .Q31M STA Administration Sodium Chloride Confirm 04/25/17 09:27 Sodium Chloride 0.9% 1000 Ml Administered 04/25/17 09:28 Dose 1,000 mls @ ud .ROUTE .STK-MED ONE Lab/Rad Data: Laboratory Result Diagrams 04/25/17 09:20 04/25/17 09:20 Laboratory Results 04/25/17 04/25/17 Range/Units 09:20 09:20 WBC 5.9 (4.0-10.5) K/mm3 RBC 3.56 L (4.1-5.4) M/mm3 Hgb 11.0 L (12.0-16.0) gm/dl Hct 34.2 L (35-47) % MCV 96.1 (78-100) fl MCH 30.8 (26-32) pg MCHC 32.2 (32-36) g/dl RDW 13.2 (11.5-14.0) % Plt Count 174 (150-450) K/mm3 MPV 11.1 H (6-9.5) fl Gran % 58.5 (36.0-66.0) % Lymphocytes % 28.8 (24.0-44.0) % Monocytes % 6.1 (0.0-12.0) % Eosinophils % 6.3 H (0.00-5.0) % Basophils % 0.3 (0.0-0.4) % Basophils # 0.02 (0-0.4) Sodium 144 (136-145) mEq/L Potassium 3.8 (3.5-5.1) mEq/L Chloride 108 H (98-107) mEq/L Carbon Dioxide 27.8 (21-32) mEq/L Anion Gap 11.6 (5-15) MEQ/L BUN 13 (9-20) mg/dL Creatinine 1.06 (0.55-1.30) mg/dl Estimated GFR 55 ML/MIN Glucose 95 (70-110) MG/DL Calcium 8.8 (8.5-10.1) mg/dL - Progress Progress: improved Counseled pt/family regarding: lab results, diagnosis, need for follow-up - Departure Time of Disposition: 10:07 Departure Disposition: Home Clinical Impression: Hypotension determined by examination Condition: Stable Critical Care Time: No Referrals: GORGE TOSCANO MD [Primary Care Provider] - Additional Instructions: You have mild lowered blood pressure today. You were given 500 mL of fluid by IV in the ER. Stopped taking the tizanidine and begin taking Flexeril 5 mg every 8 hours as needed for back pain. Follow-up as previously scheduled. Prescriptions: Cyclobenzaprine HCl [Flexeril] 5 mg PO Q8H PRN PRN #10 tablet PRN Reason: Mild To Moderate Pain
[2017-04-25] MEDS ORDERED: Sodium Chloride 0.9% 1000 ML 1,000 ML ONE (09:27)
[2017-04-25 09:42] LABS: BASOPHIL % 0.3 % (0.0-0.4); Eosinophil % 6.3 % (0.00-5.0); Granulocytes % 58.5 % (36.0-66.0); Lymphocytes % 28.8 % (24.0-44.0); Mean Cell Volume 96.1 fl (78-100); Mean Corpuscular Hemoglobin 30.8 pg (26-32); Mean Platelet Volume 11.1 fl (6-9.5); Monocytes % 6.1 % (0.0-12.0); Platelet Count 174 K/mm3 (150-450); Red Blood Count 3.56 M/mm3 (4.1-5.4); Red Cell Distribution Width 13.2 % (11.5-14.0); White Blood Count 5.9 K/mm3 (4.0-10.5)
[2017-04-25 09:45] LABS: ANION GAP 11.6 MEQ/L (5-15); Carbon Dioxide 27.8 mEq/L (21-32); Potassium 3.8 mEq/L (3.5-5.1)
[2017-04-25 10:11] VITALS: O2SAT 99
[2017-04-25 10:24] VITALS: BP 122/50; PULSE 60
== END 2017-04-25 10:33 | disposition home or self-care (01) ==
LOC: ED 08:36
DX: I95.9 Hypotension, unspecified (principal); M79.7 Fibromyalgia; E78.00 Pure hypercholesterolemia, unspecified; Z79.899 Other long term (current) drug therapy; R42 Dizziness and giddiness
CPT/HCPCS: 36000; 36415; 80048; 85025; 96360; 99283

== ENCOUNTER 2017-09-05 20:54 | Emergency (ER) | payer MEDICARE, OTHER ==
[2017-09-05] MEDS ORDERED: Phenergan 25 MG INJ IV ONE (21:09)
[2017-09-05] MEDS ORDERED: Sodium Chloride 0.9% 1000 ML 1,000 ML IV STA (21:09)
--- NOTE | 2017-09-05 21:14 | ERPHSYRPT ---
- History of Present Illness Time Seen by Provider: 09/05/17 21:05 Source: patient, family () Exam Limitations: no limitations Patient Subjective Stated Complaint: Nausea, dizzy Triage Nursing Assessment: Pt presents to the ED with complaints of fever, productive cough, nausea, and dizziness. Pt states onset x5 days. Pt denies other complaints. No distress noted, skin pwd. Physician History: FOR THE PAST 5 DAYS PT HAS HAD FEVER UP TO 103 DEGREES, DECREASED APPETITE, DIZZINESS, ABDOMINAL PAIN, NAUSEA AND COUGH PRODUCTIVE OF GREEN PHLEGM; FOR THE PAST 2 DAYS DIARRHEA. Allergies/Adverse Reactions: morphine Allergy (Severe, Verified 04/25/17 08:48) heart stops gemfibrozil [From Lopid] Allergy (Unknown, Verified 04/25/17 08:48) cortisone [Cortisone] Adverse Reaction (Intermediate, Verified 04/25/17 08:48) bruising, "made me high" clarithromycin [From Biaxin] Adverse Reaction (Unknown, Verified 04/25/17 08:48) Home Medications: Citalopram Hydrobromide [Citalopram HBr] 20 mg PO DAILY 10/03/12 [History] Fentanyl 25Mcg Patch [Duragesic 25MCG Patch] 25 mcg TOP Q3D 10/03/12 [ History] Pravastatin Sodium [Pravachol] 40 mg PO HS 10/03/12 [History] Pregabalin 50 mg [Lyrica 50MG] 50 mg PO BID 10/03/12 [History] Calcium Carbonate/Vitamin D3 [Calcium 600-Vit D3 500 Softgel] 1 each PO DAILY [History] Cholecalciferol (Vitamin D3) [Vitamin D] 50,000 unit PO UD 10/23/13 [ History] Multivitamins,Therapeutic [Thera] 1 each PO DAILY 10/23/13 [History] Rivaroxaban 10 mg Tablet [Xarelto 10 mg Tablet] 10 mg PO DAILY 10/23/13 [ History] Levothyroxine Sodium 75 Mcg [Synthroid 75 Mcg] 75 mcg PO DAILY 09/05/17 [ History] Hx Tetanus, Diphtheria Vaccination/Date Given: No Hx Influenza Vaccination/Date Given: Yes Hx Pneumococcal Vaccination/Date Given: Yes Immunizations Up to Date: Yes - Review of Systems Constitutional: Fever Respiratory: Cough Abdominal/Gastrointestinal: Abdominal Pain, Nausea, Diarrhea, Appetite Changes ( DECREASED) Neurological: Dizziness All Other Systems: Reviewed and Negative - Past Medical History Pertinent Past Medical History: Yes Neurological History: Peripheral Neuropathy, Stroke ENT History: No Pertinent History Cardiac History: High Cholesterol, Hypertension Respiratory History: Bronchitis, Pneumonia Endocrine Medical History: No Pertinent History Musculoskeletal History: Fibromyalgia GI Medical History: No Pertinent History History: Renal Disease Psycho-Social History: Depression Female Reproductive Disorders: No Pertinent History Other Medical History: Pt sees Dr. Patel to monitor kidney function, anemia, - Past Surgical History Past Surgical History: Yes Neuro Surgical History: No Pertinent History Cardiac: No Pertinent History Respiratory: No Pertinent History Gastrointestinal: Appendectomy Genitourinary: No Pertinent History Musculoskeletal: No Pertinent History Female Surgical History: Tubal Ligation Other Surgical History: overy removed - Social History Smoking Status: Never smoker Exposure to second hand smoke: Yes Drug Use: none Patient Lives Alone: No - Female History Hx Now: No - Nursing Vital Signs Nursing Vital Signs: Initial Vital Signs Temperature 99.1 F 09/05/17 21:05 Pulse Rate 94 H 09/05/17 21:05 Respiratory Rate 22 09/05/17 21:05 Blood Pressure 141/79 09/05/17 21:05 O2 Sat by Pulse Oximetry 94 L 09/05/17 21:05 Pain Scale Pain Intensity 0 - Physical Exam General Appearance: alert Eye Exam: PERRL/EOMI Ears, Nose, Throat Exam: TMs normal, dry mucous membranes, pharyngeal erythema Neck Exam: normal inspection Respiratory Exam: lungs clear Cardiovascular Exam: normal heart sounds Gastrointestinal/Abdomen Exam: soft, other (B.S. MODERATELY HYPERACTIVE AND NORMOTONIC) Back Exam: normal range of motion Extremity Exam: normal inspection, No pedal edema Neurologic Exam: alert, cooperative Skin Exam: warm, dry SpO2 Interpretation: normal SpO2: 94 Oxygen Delivery: Room Air - Course Nursing assessment & vital signs reviewed: Yes Ordered Tests: Active Orders 24 hr Category Date Time Status Clean Catch Urine Specimen STAT Care 09/05/17 21:09 Active IV Insertion STAT Care 09/05/17 21:09 Active AMYLASE Stat Lab 09/05/17 21:10 Completed CBC W DIFF Stat Lab 09/05/17 21:10 Completed CMP Stat Lab 09/05/17 21:10 Completed CULTURE, THROAT Stat Lab 09/05/17 21:34 Received LIPASE Stat Lab 09/05/17 21:10 Completed MAG [MAGNESIUM] Stat Lab 09/05/17 21:10 Completed STREP SCREEN-BETA A Stat Lab 09/05/17 21:34 Completed UA W/RFX UR CULTURE Stat Lab 09/05/17 22:20 Completed Medication Summary Generic Name Dose Route Start Last Admin Trade Name Breana PRN Reason Stop Dose Admin Magnesium Oxide 400 mg 09/06/17 10:00 09/05/17 22:42 Mag-Ox 400 PO 10/06/17 09:59 400 mg BID JOSSY Administration Discontinued Medications Generic Name Dose Route Start Last Admin Trade Name Breana PRN Reason Stop Dose Admin Fentanyl Citrate 25 mcg 09/05/17 22:52 Sublimaze 100 Mcg/2 Ml IV 09/05/17 22:53 STAT ONE Fentanyl Citrate Confirm 09/05/17 22:54 Sublimaze 100 Mcg/2 Ml Administered 09/05/17 22:55 Dose 100 mcg .ROUTE .STK-MED ONE Sodium Chloride 1,000 mls @ 999 mls/hr 09/05/17 21:09 09/05/17 21:21 Sodium Chloride 0.9% 1000 Ml IV 09/05/17 22:09 999 mls/hr .Q1H1M STA Administration Sodium Chloride Confirm 09/05/17 21:18 Sodium Chloride 0.9% 1000 Ml Administered 09/05/17 21:19 Dose 1,000 mls @ ud .ROUTE .STK-MED ONE Potassium Bicarbonate 50 meq 09/05/17 22:14 09/05/17 22:42 K-Lyte 25 Meq PO 09/05/17 22:15 50 meq STAT ONE Administration Potassium Bicarbonate Confirm 09/05/17 22:35 K-Lyte 25 Meq Administered 09/05/17 22:36 Dose 50 meq .ROUTE .STK-MED ONE Promethazine HCl 12.5 mg 09/05/17 21:09 09/05/17 21:21 Phenergan 25 Mg Inj IV 09/05/17 21:10 12.5 mg STAT ONE Administration Promethazine HCl Confirm 09/05/17 21:18 Phenergan 25 Mg Inj Administered 02/13/18 21:19 Dose 25 mg .ROUTE .STK-MED ONE Lab/Rad Data: Laboratory Result Diagrams 09/05/17 21:10 09/05/17 21:10 Laboratory Results 09/05/17 09/05/17 09/05/17 Range/Units 22:20 21:34 21:34 WBC (4.0-10.5) K/mm3 RBC (4.1-5.4) M/mm3 Hgb (12.0-16.0) gm/dl Hct (35-47) % MCV (78-100) fl MCH (26-32) pg MCHC (32-36) g/dl RDW (11.5-14.0) % Plt Count (150-450) K/mm3 MPV (6-9.5) fl Gran % (36.0-66.0) % Lymphocytes % (24.0-44.0) % Monocytes % (0.0-12.0) % Eosinophils % (0.00-5.0) % Basophils % (0.0-0.4) % Basophils # (0-0.4) Sodium (136-145) mEq/L Potassium (3.5-5.1) mEq/L Chloride (98-107) mEq/L Carbon Dioxide (21-32) mEq/L Anion Gap (5-15) MEQ/L BUN (9-20) mg/dL Creatinine (0.55-1.30) mg/dl Estimated GFR ML/MIN Glucose (70-110) MG/DL Calcium (8.5-10.1) mg/dL Magnesium (1.8-2.4) mg/dL Total Bilirubin (0.2-1.0) mg/dL AST (15-37) U/L ALT (12-78) U/L Alkaline Phosphatase (46-116) U/L Serum Total Protein (6.4-8.2) gm/dL Albumin (3.4-5.0) g/dL Amylase (25-115) U/L Lipase (73-393) U/L Ur Collection Type CCMS Urine Color YELLOW (YELLOW) Urine Appearance CLEAR (CLEAR) Urine pH 5.0 (5-6) Ur Specific [place] 1.010 (1.005-1.025) Urine Protein NEGATIVE (Negative) Urine Ketones NEGATIVE (NEGATIVE) Urine Blood NEGATIVE (0-5) Ortega/ul Urine Nitrite NEGATIVE (NEGATIVE) Urine Bilirubin NEGATIVE (NEGATIVE) Urine Urobilinogen NORMAL (0-1) mg/dL Ur Leukocyte Esterase NEGATIVE (NEGATIVE) Urine Culture Reflexed NO (NO) Urine Glucose NEGATIVE (NEGATIVE) mg/dL Influenza Type A Ag NEGATIVE (NEGATIVE) Influenza Type B Ag NEGATIVE (NEGATIVE) RSV (PCR) NEGATIVE (Negative) Streptococcus Screen NEGATIVE (Negative) Specimen Received 09-05-17 1629 09/05/17 09/05/17 09/05/17 Range/Units 21:10 21:10 21:10 WBC 6.7 (4.0-10.5) K/mm3 RBC 3.89 L (4.1-5.4) M/mm3 Hgb 11.7 L (12.0-16.0) gm/dl Hct 36.2 (35-47) % MCV 93.1 (78-100) fl MCH 30.0 (26-32) pg MCHC 32.3 (32-36) g/dl RDW 12.2 (11.5-14.0) % Plt Count 145 L (150-450) K/mm3 MPV 11.2 H (6-9.5) fl Gran % 82.7 H (36.0-66.0) % Lymphocytes % 10.6 L (24.0-44.0) % Monocytes % 6.5 (0.0-12.0) % Eosinophils % 0.1 (0.00-5.0) % Basophils % 0.1 (0.0-0.4) % Basophils # 0.01 (0-0.4) Sodium 136 (136-145) mEq/L Potassium 3.1 L (3.5-5.1) mEq/L Chloride 100 (98-107) mEq/L Carbon Dioxide 24.8 (21-32) mEq/L Anion Gap 14.6 (5-15) MEQ/L BUN 12 (9-20) mg/dL Creatinine 1.15 (0.55-1.30) mg/dl Estimated GFR 50 ML/MIN Glucose 164 H (70-110) MG/DL Calcium 9.1 (8.5-10.1) mg/dL Magnesium 1.7 L (1.8-2.4) mg/dL Total Bilirubin 0.60 (0.2-1.0) mg/dL AST 22 (15-37) U/L ALT 15 (12-78) U/L Alkaline Phosphatase 57 (46-116) U/L Serum Total Protein 7.6 (6.4-8.2) gm/dL Albumin 3.7 (3.4-5.0) g/dL Amylase 25 (25-115) U/L Lipase 63 L (73-393) U/L Ur Collection Type Urine Color (YELLOW) Urine Appearance (CLEAR) Urine pH (5-6) Ur Specific [place] (1.005-1.025) Urine Protein (Negative) Urine Ketones (NEGATIVE) Urine Blood (0-5) Ortega/ul Urine Nitrite (NEGATIVE) Urine Bilirubin (NEGATIVE) Urine Urobilinogen (0-1) mg/dL Ur Leukocyte Esterase (NEGATIVE) Urine Culture Reflexed (NO) Urine Glucose (NEGATIVE) mg/dL Influenza Type A Ag (NEGATIVE) Influenza Type B Ag (NEGATIVE) RSV (PCR) (Negative) Streptococcus Screen (Negative) Specimen Received - Departure Time of Disposition: 23:00 Departure Disposition: Home Clinical Impression: PHARYNGITIS, HYPOKALEMIA, HYPOMAGNESEMIA, DIARRHEA Condition: Stable Critical Care Time: No Referrals: GORGE TOSCANO MD [Primary Care Provider] - Instructions: Sore Throat, Adult (DC), Diarrhea and Traveler's Diarrhea, Adult (DC) Additional Instructions: FOLLOW UP WITH PRIVATE DOCTOR TOMORROW. Prescriptions: Cefdinir [Omnicef 300 mg] 300 mg PO BID #20 capsule
[2017-09-05] MEDS ORDERED: Sodium Chloride 0.9% 1000 ML 1,000 ML ONE (21:18)
[2017-09-05] MEDS ORDERED: Phenergan 25 MG INJ ONE (21:18)
[2017-09-05 21:30] LABS: BASOPHIL % 0.1 % (0.0-0.4); Basophil (Absolute #) 0.01 (0-0.4); Eosinophil % 0.1 % (0.00-5.0); Eosinophil (Absolute #) 0.01 (0-0.5); Granulocyte Absolute (ANC) 5.55 (1.4-6.9); Granulocytes % 82.7 % (36.0-66.0); Hematocrit 36.2 % (35-47); Hemoglobin 11.7 gm/dl (12.0-16.0); Lymphocyte (Absolute #) 0.71 (1.0-4.6); Lymphocytes % 10.6 % (24.0-44.0); Mean Cell Volume 93.1 fl (78-100); Mean Corpuscular Hgb Concent. 32.3 g/dl (32-36); Mean Platelet Volume 11.2 fl (6-9.5); Monocyte (Absolute #) 0.44 (0.0-1.3); Monocytes % 6.5 % (0.0-12.0); Platelet Count 145 K/mm3 (150-450); Red Blood Count 3.89 M/mm3 (4.1-5.4); Red Cell Distribution Width 12.2 % (11.5-14.0); White Blood Count 6.7 K/mm3 (4.0-10.5)
[2017-09-05 21:52] LABS: ALBUMIN 3.7 g/dL (3.4-5.0); ANION GAP 14.6 MEQ/L (5-15); BILIRUBIN,TOTAL 0.6 mg/dL (0.2-1.0); Calcium 9.1 mg/dL (8.5-10.1); Carbon Dioxide 24.8 mEq/L (21-32); Creatinine 1 1.15 mg/dl (0.55-1.30); Potassium 3.1 mEq/L (3.5-5.1); Total Protein 7.6 gm/dL (6.4-8.2)
[2017-09-05 22:08] LABS: INFLUENZA A NEGATIVE (NEGATIVE); INFLUENZA B NEGATIVE (NEGATIVE); RESPIRATORY SYNCTIAL VIRUS NEGATIVE (Negative)
[2017-09-05] MEDS ORDERED: K-LYTE 25 MEQ PO ONE (22:14)
[2017-09-05] MEDS ORDERED: MAG-OX 400 ONE (22:34)
[2017-09-05] MEDS ORDERED: K-LYTE 25 MEQ ONE (22:35)
[2017-09-05 22:36] LABS: Appearance CLEAR (CLEAR); Bilirubin NEGATIVE (NEGATIVE); Blood NEGATIVE Ery/ul (0-5); Glucose NEGATIVE (NEGATIVE); Ketones NEGATIVE (NEGATIVE); Leukocyte Esterase NEGATIVE (NEGATIVE); Nitrite NEGATIVE (NEGATIVE); Protein,Urine Dip NEGATIVE (Negative); Urobilinogen NORMAL mg/dL (0-1)
[2017-09-05] MEDS ORDERED: SUBLIMAZE 100 MCG/2 ML IV ONE (22:52)
[2017-09-05] MEDS ORDERED: SUBLIMAZE 100 MCG/2 ML ONE (22:54)
[2017-09-05] MEDS ORDERED: ROCEPHIN 1 Gm-D5w 50 ml Bag** 1 G/50 ML IVPB IV STA (23:00)
[2017-09-05] MEDS ORDERED: ROCEPHIN 1 Gm-D5w 50 ml Bag** 1 G/50 ML IVPB IV ONE (23:09)
[2017-09-05] MEDS ORDERED: Robitussin 100 MG/5 ML PO PRN (23:16)
[2017-09-05 23:47] VITALS: BP 137/76; PULSE 64; O2SAT 97
[2017-09-06] MEDS ORDERED: MAG-OX 400 PO SCH (10:00)
== END 2017-09-05 23:47 | disposition home or self-care (01) ==
LOC: ED 20:54
DX: J02.9 Acute pharyngitis, unspecified (principal); E87.6 Hypokalemia; E83.42 Hypomagnesemia; R19.7 Diarrhea, unspecified
CPT/HCPCS: 36000; 36415; 80053; 81002; 82150; 83690; 83735; 85025; 87070; 87430; 87631; 96360; 96365; 96374; 99284; J0696; J2550; J3010; A9270-GY

== ENCOUNTER 2021-05-18 22:36 | Emergency (ER) | payer MEDICARE, OTHER ==
[2021-05-18] MEDS ORDERED: PERCOCET TABLET 5/325MG ONE (23:12)
[2021-05-18] MEDS: PERCOCET TABLET 5/325MG PO ONE (23:21)
--- NOTE | 2021-05-18 23:31 | ERPHSYRPT ---
- History of Present Illness Time Seen by Provider: 05/18/21 22:41 Patient Subjective Stated Complaint: pt states "I fell week ago in the shower. I heard a pop tonight. The pain is getting worse." Triage Nursing Assessment: pt ambulated into the er; pt grabbing left ribs; pt is axo x4; c/o left rib pain, fall; pt states 7/10 pain to left ribs; pt states she fell a week ago in the shower; pt states she is on a blood thinner; pt has swelling to left lower ribs; tenderness present to left lower ribs; no visible bruising present; clear lung sounds in all lobes; hypertension Physician History: 71 years old female on Xarelto presented in the ER after she slipped and fell in the bathroom almost a week ago and hurt her left lower ribs. Patient reports moderate intensity sharp pain that hurts to take deep breath, coughing, palpation and lying on the left side. She has 2 takes shallow breaths. Denies any abdominal pain nausea or vomiting. No obvious shortness of breath. Did not hit her head, no loss of consciousness. Has chronic low back pain which is not any worse than usual. Patient reports tonight she heard some popping sound in the left lower ribs and probably fracture some ribs. Timing/Duration: week(s) (1), gradual onset, worse Severity: moderate Modifying Factors: Worsens With: movement Associated Symptoms: chest pain Allergies/Adverse Reactions: morphine Allergy (Severe, Verified 05/18/21 22:49) heart stops gemfibrozil [From Lopid] Allergy (Unknown, Verified 05/18/21 22:49) cortisone [Cortisone] Adverse Reaction (Intermediate, Verified 05/18/21 22:49) bruising, "made me high" clarithromycin [From Biaxin] Adverse Reaction (Unknown, Verified 05/18/21 22:49) Home Medications: Pravastatin Sodium [Pravachol] 40 mg PO HS 10/03/12 [History] Pregabalin 50 mg [Lyrica 50MG] 75 mg PO BID 10/03/12 [History] Rivaroxaban 10 mg Tablet [Xarelto 10 mg Tablet] 10 mg PO DAILY 10/23/13 [History] Levothyroxine Sodium 75 Mcg [Synthroid 75 Mcg] 50 mcg PO DAILY 09/05/17 [History] Cyanocobalamin (Vitamin B-12) [B-12] 1,000 mcg PO DAILY 05/18/21 [History] Furosemide [Lasix] 20 mg PO DAILY 05/18/21 [History] Magnesium 400 mg PO DAILY 05/18/21 [History] Midodrine HCl 2.5 mg PO TID 05/18/21 [History] Pramipexole Di-HCl [Pramipexole Dihydrochloride] 0.5 mg PO DAILY 05/18/21 [History] Trazodone HCl 50 mg PO DAILY 05/18/21 [History] Hx Tetanus, Diphtheria Vaccination/Date Given: No Hx Influenza Vaccination/Date Given: Yes Hx Pneumococcal Vaccination/Date Given: Yes Travel Risk - International Travel Have you traveled outside of the country in past 3 weeks: No - Coronavirus Screening Are you exhibiting any of the following symptoms?: No Close contact with a COVID-19 positive Pt in past 14-21 Days: No - Vaccine Status Have you recieved a Covid-19 vaccination: Yes 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 - Vaccination Dates Date of 2cond Vaccination (if applicable): 10/08/20 - Review of Systems Constitutional: No Symptoms Eyes: No Symptoms Ears, Nose, & Throat: No Symptoms Respiratory: No Symptoms Cardiac: Chest Pain Abdominal/Gastrointestinal: No Symptoms Genitourinary Symptoms: No Symptoms Musculoskeletal: No Symptoms Skin: No Symptoms Neurological: No Symptoms Endocrine: No Symptoms Hematologic/Lymphatic: No Symptoms Immunological/Allergic: No Symptoms - Past Medical History Pertinent Past Medical History: Yes Neurological History: Peripheral Neuropathy, Stroke ENT History: No Pertinent History Cardiac History: High Cholesterol, Hypertension Respiratory History: Bronchitis, Pneumonia Endocrine Medical History: No Pertinent History Musculoskeletal History: Fibromyalgia GI Medical History: No Pertinent History History: Renal Disease Psycho-Social History: Depression Female Reproductive Disorders: No Pertinent History Other Medical History: Pt sees Dr. Patel to monitor kidney function, anemia, - Past Surgical History Past Surgical History: Yes Neuro Surgical History: No Pertinent History Cardiac: No Pertinent History Respiratory: No Pertinent History Gastrointestinal: Appendectomy Genitourinary: No Pertinent History Musculoskeletal: No Pertinent History Female Surgical History: Tubal Ligation Other Surgical History: overy removed - Social History Smoking Status: Never smoker Exposure to second hand smoke: Yes Drug Use: none Patient Lives Alone: No - Female History Hx Now: No - Nursing Vital Signs Nursing Vital Signs: Initial Vital Signs Temperature 97.4 F 05/18/21 22:49 Pulse Rate 81 05/18/21 22:49 Respiratory Rate 18 05/18/21 22:49 Blood Pressure 152/68 05/18/21 22:49 O2 Sat by Pulse Oximetry 100 05/18/21 22:49 Pain Scale Pain Intensity 2 - Physical Exam General Appearance: no apparent distress, alert Eye Exam: PERRL/EOMI Ears, Nose, Throat Exam: normal ENT inspection, pharynx normal Neck Exam: normal inspection, supple, full range of motion Respiratory Exam: normal breath sounds, chest tenderness (Left lower anterolateral chest wall. No crepitus.) Cardiovascular Exam: regular rate/rhythm, normal heart sounds Gastrointestinal/Abdomen Exam: soft, normal bowel sounds, No tenderness, No distention, No guarding Extremity Exam: normal inspection, normal range of motion Neurologic Exam: alert, oriented x 3, cooperative SpO2 Interpretation: normal SpO2: 100 O2 Delivery: Room Air Ordered Tests: Medication Summary Discontinued Medications Generic Name Dose Route Start Last Admin Trade Name Breana PRN Reason Stop Dose Admin Oxycodone/Acetaminophen 1 tab 05/18/21 23:08 05/18/21 23:21 Oxycodone Hcl/Apap 5 Mg/325 Mg Tablet PO 05/18/21 23:09 1 tab STAT ONE Administration Oxycodone/Acetaminophen Confirm 05/18/21 23:12 Oxycodone Hcl/Apap 5 Mg/325 Mg Tablet Administered 05/18/21 23:13 Dose 1 tab .ROUTE .STK-MED ONE - Progress Progress: improved, pain not gone completely, re-examined Progress Note: 05/19/21 She is given symptomatic treatment for pain. No obvious difficulty breathing and lung sounds clear to auscultation. X-rays reviewed by me with questionable 8/10 rib fracture but according to radiology report no obvious fracture noticed. I believe patient has contusion, recommended supportive care, deep breathing exercises and continue with pain medication which she has at home. Did not hit her head, no loss of consciousness and also injury is almost 1 week old, do not think needs any other work-up and is stable for discharge. Counseled pt/family regarding: diagnosis, need for follow-up, rad results - Departure Departure Disposition: Home Clinical Impression: Chest wall contusion Qualifiers: Encounter type: initial encounter Laterality: left Qualified Code(s): S20.212A - Contusion of left front wall of thorax, initial encounter Condition: Stable Critical Care Time: No Referrals: GORGE TOSCANO MD [Primary Care Provider] - (Call tomorrow for reevaluation) Instructions: Rib Fracture (DC), Contusion (DC) Additional Instructions: Take pain medications along with Tylenol as needed for symptomatic relief. Do deep breathing exercises. Follow-up with primary care for reevaluation. Return to ER for intractable pain, difficulty breathing etc.
[2021-05-19 01:11] VITALS: O2SAT 100
[2021-05-19 02:15] VITALS: BP 114/68; PULSE 66
--- NOTE | 2021-05-19 08:44 | XRAY ---
Indication: And following fall one week ago. Comparison: None 2 view left RIBS demonstrate mild osteopenia, mild left shoulder degenerative arthropathy, and minimal/mild multilevel lumbar degenerative spondylosis. No other bony, articular, or soft tissue abnormalities. Comment: Preliminary interpretation made by C. No critical discrepancy.
--- NOTE | 2021-05-19 08:46 | XRAY ---
Indication: Left rib pain following fall one week ago. Comparison: February 23, 2016. Portable chest again demonstrates normal heart and lungs. Bony thorax intact again with mild osteopenia and degenerative changes. No new/acute findings.
== END 2021-05-19 02:15 | disposition home or self-care (01) ==
LOC: ED 22:36
DX: S20.212A Contusion of left front wall of thorax, initial encounter (principal); W18.2XXA Fall in (into) shower or empty bathtub, initial encounter; Z79.899 Other long term (current) drug therapy
CPT/HCPCS: 71045; 71100; 99283; A9270-GY